=== PATIENT | female | born 2000 | race Caucasian/White ===

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

== ENCOUNTER 2024-09-25 09:24 | Emergency (ER) | payer OTHER ==
[2024-09-25 09:30] VITALS: BP 118/82; PULSE 85; RESP 16; TEMP 98.8; BMI 35.2
[2024-09-25] MEDS ORDERED: LIDOCAINE 4% PATCH TP ONE ×2 (10:38→10:40)
[2024-09-25] MEDS: LIDOCAINE 5% TOPICAL PATCH TP ONE (10:46)
[2024-09-25] MEDS: ACETAMINOPHEN 500 MG TABLET (FP) PO ONE (11:35)
[2024-09-25] MEDS ORDERED: LIDOCAINE PATCH REMOVAL MC ONE (22:00)
== END 2024-09-25 13:39 | disposition home or self-care (01) ==
LOC: JERFT 09:24
DX: S16.1XXA Strain of muscle, fascia and tendon at neck level, initial encounter (principal); V43.12XA Car passenger injured in collision with other type car in nontraffic accident, initial encounter
CPT/HCPCS: 99283-25

== ENCOUNTER 2025-01-20 22:20 | Emergency (ER) | payer OTHER ==
[2025-01-20 22:31] VITALS: BP 150/93; PULSE 96; RESP 17; TEMP 98.3; BMI 34.3
[2025-01-20] MEDS ORDERED: FAMOTIDINE 20 MG/50 ML IVPB 20 MG/50 ML MG IVPB ONE (23:55)
[2025-01-20] MEDS ORDERED: ACETAMINOPHEN INJECTION 100 ML ONE (23:55)
[2025-01-20] MEDS ORDERED: ONDANSETRON 4 MG/2 ML VIAL ONE (23:55)
[2025-01-21] MEDS ORDERED: ONDANSETRON 4 MG/2 ML VIAL ONE (00:23)
[2025-01-21] MEDS: ONDANSETRON 4 MG/2 ML VIAL IVPUSH ONE (00:26)
[2025-01-21] MEDS: FAMOTIDINE 20 MG/50 ML IVPB 20 MG/50 ML MG IVPB ONE (00:26)
[2025-01-21] MEDS: ACETAMINOPHEN 1000 MG/100 ML BAG IVPB ONE (00:26)
[2025-01-21 00:43] LABS: BASO % 0.4 % (0-2.0); EOS % 0.1 % (0-4.5); HEMATOCRIT 41.7 % (32.4-45.2); HEMOGLOBIN 13.7 GM/dL (10.7-15.3); LYMPH % 13.8 % (8-40); MCHC 32.9 g/dl (32.0-36.0); MEAN CELL VOLUME 91.3 fl (80-96); MEAN PLT VOLUME 7.7 fl (7.5-11.1); MONO % 2.1 % (3.8-10.2); NEUT % 83.6 % (42.8-82.8); PLATELET COUNT 344 10^3/uL (134-434); RBC 4.57 M/mm3 (3.60-5.2); RDW 13.3 % (11.6-15.6); WHITE BLOOD COUNT 12.9 K/mm3 (4.0-10.0)
[2025-01-21 00:57] LABS: POTASSIUM 3.7 mmol/L (3.5-5.1)
[2025-01-21 00:59] LABS: BLOOD UREA NITROGEN 6.9 mg/dL (7-18); CALCIUM 9.2 mg/dL (8.5-10.1)
[2025-01-21 01:02] LABS: CREATININE 0.6 mg/dL (0.55-1.3)
[2025-01-21 01:04] LABS: BILIRUBIN,TOTAL 0.6 mg/dL (0.2-1); TOT PROT 7.4 g/dl (6.4-8.2)
[2025-01-21 01:55] LABS: HIV INTERPRETATION NEGATIVE (NEGATIVE)
== END 2025-01-21 01:45 | disposition home or self-care (01) ==
LOC: JER 22:20
PROC: 3E033GC Introduction of Other Therapeutic Substance into Peripheral Vein, Percutaneous Approach (ICD-10-PCS; principal; 2025-01-20)
PROC: 3E033NZ Introduction of Analgesics, Hypnotics, Sedatives into Peripheral Vein, Percutaneous Approach (ICD-10-PCS; 2025-01-20)
DX: K80.20 Calculus of gallbladder without cholecystitis without obstruction (principal); R11.2 Nausea with vomiting, unspecified
CPT/HCPCS: 36415; 76705-TC; 80053; 83735; 85025; 86803; 87389; 96365; 96375; 99285-25; J0131